=== PATIENT | male | born 1950 | race Caucasian/White ===

== ENCOUNTER 2016-09-30 10:32 | Emergency (ER) | payer OTHER ==
[2016-09-30] MEDS ORDERED: GLUCAGON,HUMAN RECOMBINANT 1 MG/ML KIT ONE ×2 (11:12→12:11)
--- NOTE | 2016-09-30 13:17 | ER PHYSICIAN DOCUMENTATION ---
Physician Documentation [facility] Name:David Henson Jr Age:66 yrs Sex:Male :1950 Arrival Date:09/30/2016 Time:10:32 Bed4 Private MD: Leonel Michele Disposition: 09/30 12:43 Chart complete. cd 12:54 Critical Care: not applicable. cd Disposition: 09/30/16 12:56 Transfer ordered to [facility]. Diagnosis are Esophageal Stricture, Esophageal Spasm - with food bolus. - Reason for transfer: Specialty. - Accepting physician is Simin Michele MD, Pastry Sous [employer]. - Condition is Good. - Problem is an acute exacerbation. - Symptoms are unchanged. COBRA Form completed? Yes Transfer - Mode of Transportation Private Vehicle HPI: 10:45 This 66 yrs old Male presents to ER via Private Vehicle with complaints of cd food bolus stuck in esophagus. 10:45 The patient or guardian reports chest pain that is located primarily in the substernal cd area. Onset: acutely, this morning, Patient has a know Hx of esophageal food bolus lodgement. He has a history of Shotski's Esophageal ring, that has required dilatation three times ...the last time was in May of this year. He states he was eating sausage for breakfast and it became lodged in his esophagus. He is unable to swallow his saliva or water. His airway is fine.. The pain does not radiate. There has been no movement of pain. Associated signs and symptoms: Pertinent positives: None. The chest pain is described as aching, dull. Duration: The patient or guardian reports a single episode, that is still ongoing. Risk factors for coronary artery disease include: This patient does not have any risk factors for coronary artery disease. Historical: - Allergies: PCN; schatzki ring; - Home Meds: 1. Aciphex Oral - PMHx: GERD; Acid reflux ; esphogas spasms ; - PSHx: Cholecysectomy; Appendectomy; Tonsillectomy; Knee surgery; ID of bursititis ; esphogual dilation X 3; - Tetanus: > 10 years. - Ebola Screening: : Patient negative for fever greater than or equal to 101.5 degrees Fahrenheit, and additional compatible Ebola Virus Disease symptoms. Patient denies exposure to infectious person. Patient denies travel to an Ebola-affected area in the 21 days before illness onset. No symptoms or risks identified at this time. . - Immunization history: Pneumococcal vaccine is not up to date. - Social history: Smoking status: Patient states was never smoker of tobacco. ROS: 10:45 Neck: Negative for injury, pain, stiffness and swelling. cd Abdomen/GI: Negative for abdominal pain, nausea, vomiting, diarrhea, constipation, distension, melena, hematochezia and hematemesis. 10:45 Back: Negative for injury, pain or muscle spasms. cd 10:45 Constitutional: Negative for poor PO intake. 10:45 ENT: Positive for unable to swallow saliva, Negative for hoarseness. 10:45 Cardiovascular: Positive for chest pain, Negative for orthopnea, palpitations. 10:45 Respiratory: Negative for cough, pleurisy, shortness of breath, wheezing. Exam: ENT: Nares patent. No nasal discharge, no septal abnormalities noted. Tympanic membranes are normal and external auditory canals are clear. Oropharynx with no redness, swelling, or masses, exudates, or evidence of obstruction, uvula midline. Mucous membranes moist. Cannot swallow his saliva Neck: Trachea midline, no thyromegaly or masses palpated, and no cervical lymphadenopathy. Supple, full range of motion without nuchal rigidity, or vertebral point tenderness. No Meningismus. Chest/axilla: Normal chest wall appearance and motion. Nontender with no deformity. No lesions are appreciated. 10:45 Abdomen/GI: Soft, non-tender, with normal bowel sounds. No distension or tympany. No cd guarding or rebound. No evidence of tenderness throughout. 10:45 Constitutional: The patient appears alert, awake, non-diaphoretic, non-toxic, anxious. 10:45 Cardiovascular: Rate: normal, Rhythm: regular, Heart sounds: normal. 10:45 Respiratory: the patient does not display signs of respiratory distress, Respirations: normal, no acute changes, Breath sounds: are normal, clear throughout. Vital Signs: 10:49 BP 164 / 87; Pulse 86; Resp 24; Temp 98.9(TE); Pulse Ox 94% on R/A; Weight 99.79 kg; cb Height 6 ft. 1 in. (185.42 cm); Pain 2/10; 11:12 BP 118 / 87; cb 10:49 Body Mass Index 29.03 (99.79 kg, 185.42 cm) cb MDM: 10:47 Data interpreted: radiation monitor: not applicable for this patient encounter. Pulse cd oximetry: on room air is 94 %. Interpretation: normal. ECG: ECG: an electrocardiogram was deferred on this patient. 10:50 Differential diagnosis: Esophageal Food Bolus, Esophageal Spasm. The patient was not cd given aspirin in the Emergency Department due to not indicated. 11:03 Patient medically screened. cd 12:43 Physician consultation: Tam Michele MD was called at 12:40, was contacted at 12:42, cd regarding consult, patient's condition, need to evaluate the patient as soon as possible, and will see patient in the [facility] . shortly, later today, after a discussion of the case, a recommendation for transfer for higher level of care is made. 12:45 Response to treatment: There is no appreciated change of the patient's symptoms at this cd time. 12:50 Data reviewed: vital signs, nurses notes, old medical records, and as a result, I will cd *Transfer Patient initiate a consult, with a copyright manager, for EGD and send the patient to the [facility] Endoscopy Lab. 09/30 11:05 Order name: NPO; Complete Time: 11:45 cd Dispensed Medications: 11:05 Drug: Glucagon 1 mg; Route: IM; Site: left vastus lateralis; lpr 12:07 Follow up: Response: No change in condition cb 12:08 Drug: Glucagon 1 mg; Route: IM; Site: right vastus lateralis; cb 12:53 Follow up: Response: No change in condition cb Signatures: Natalie Whittaker RN RN cb Avani Ignacio RN RN lp Daley, Chris, MD MD cd Blanca Barksdale RN RN lpr
--- NOTE | 2016-09-30 13:17 | ER NURSING DOCUMENTATION ---
Nurse's Notes [facility] Name:David Henson Jr Age:66 yrs Sex:Male :1950 Arrival Date:09/30/2016 Time:10:32 Bed4 Private MD: Diagnosis:Esophageal Stricture;Esophageal Spasm- with food bolus Presentation: 09/30 10:36 Presenting complaint: Patient states: Food stuck is esophagus since 0730 or 800am. cb Transition of care: Home. Notified ED Physician of patient's arrival and CC Dr. Cotto notified. 10:36 Acuity: WANG 3 cb 10:36 Method Of Arrival: Private Vehicle cb Triage Assessment: 10:44 General: Appears uncomfortable, well groomed, Behavior is cooperative. Pain: Complains cb of pain in xyphoid area feels iit also in the throat. EENT: Denies nasal congestion. Neuro: Level of Consciousness is awake, alert, Oriented to person, place, time, event. Cardiovascular: Pulses are 2+ in left radial artery. Respiratory: Airway is patent Trachea midline Respiratory effort is even, unlabored, Respiratory pattern is regular, symmetrical, Reports Denies shortness of breath at rest, on exertion. Respiratory: Breath sounds are clear bilaterally. GI: Abdomen is non- distended other can't swallow saliva Bowel sounds diminished in right upper quadrant, left upper quadrant, right lower quadrant and left lower quadrant. : No deficits noted. Derm: No deficits noted. Musculoskeletal: No deficits noted. Historical: - Allergies: PCN; schatzki ring; - Home Meds: 1. Aciphex Oral - PMHx: GERD; Acid reflux ; esphogas spasms ; - PSHx: Cholecysectomy; Appendectomy; Tonsillectomy; Knee surgery; ID of bursititis ; esphogual dilation X 3; - Tetanus: > 10 years. - Ebola Screening: : Patient negative for fever greater than or equal to 101.5 degrees Fahrenheit, and additional compatible Ebola Virus Disease symptoms. Patient denies exposure to infectious person. Patient denies travel to an Ebola-affected area in the 21 days before illness onset. No symptoms or risks identified at this time. . - Immunization history: Pneumococcal vaccine is not up to date. - Social history: Smoking status: Patient states was never smoker of tobacco. Screenin:51 Infectious Disease Risk None. Abuse screen: Denies threats or abuse. Denies injuries cb from another. Nutritional screening: No deficits noted. Vital Signs: 10:49 BP 164 / 87; Pulse 86; Resp 24; Temp 98.9(TE); Pulse Ox 94% on R/A; Weight 99.79 kg; cb Height 6 ft. 1 in. (185.42 cm); Pain 2/10; 11:12 BP 118 / 87; cb 10:49 Body Mass Index 29.03 (99.79 kg, 185.42 cm) cb ED Course: 10:33 Patient arrived in ED. ds 10:36 Natalie Whittaker, RN is Primary Nurse. cb 10:37 Triage completed. cb 10:51 Valuables Remains with patient Patient has correct armband on for positive cb identification. Placed in gown. Bed in low position. Call light in reach. Adult w/ patient. Pulse Ox - RN Monitoring Only NIBP On - RN Monitoring Only. Diet: Patient is NPO. 11:03 Leonel Cotto MD is Attending Physician. cd Administered Medications: 11:05 Drug: Glucagon 1 mg; Route: IM; Site: left vastus lateralis; lpr 12:07 Follow up: Response: No change in condition cb 12:08 Drug: Glucagon 1 mg; Route: IM; Site: right vastus lateralis; cb 12:53 Follow up: Response: No change in condition cb Outcome: 12:56 ER care complete, transfer ordered by MD. cd 13:07 Transferred: Patient will be transferred to: Report called to: Stephanie WEBSTER lp 13:07 Transferred: Patient will be transferred to: [facility]. Facility Acceptance Time: September 30, 2016 at 13:00 Patient's face sheet was faxed to accepting facility. Face Sheet included patient's name, address, age, gender, contact information and insurance information. Patient will be transported by: Private Vehicle. Nurse and Physician Charting and Notes were sent to Accepting Facility. All tests and/or procedures with results, if applicable, were sent to accepting facility. 13:07 Condition: stable 13:07 Report given to Stephanie WEBSTER in GI lab 13:07 Instructed on follow up and referral plans. need for transfer 13:17 Patient left the ED. lp Signatures: Natalie Whittaker RN RN cb Pavlish, Lena, RN RN lp Srot, Jasmine, Reg Reg ds Leonel Cotto MD MD cd Roberts, Leslie, ELEANOR RN lpr
== END 2016-09-30 13:17 | disposition short-term general hospital (02) ==
LOC: ER 10:32
DX: T18.128A Food in esophagus causing other injury, initial encounter (principal); K22.2 Esophageal obstruction; K22.4 Dyskinesia of esophagus; Z79.899 Other long term (current) drug therapy
CPT/HCPCS: 96372; 99285; J1610